=== PATIENT | female | born 1975 | race African-American/Black ===

== ENCOUNTER → 2016-10-02 | Outpatient (CLI) | payer MEDICAID ==
[~2016-10-02] MED LIST: ANUSOL SUPP1 SUPP PR; FIBERCON625 MG PO; KEFLEX500 MG PO; TYLENOL #3 PO; ZOLOFT PO; [UNRECOGNIZED DRUG - REMARK]
--- NOTE | ~2016-10-02 | MR97 ---
[facility] A Service of [facility] & [facility] RADIOLOGY TEXT RESULTS PATIENT: ANNETTE ADAMSON LOCATION: CIVR : 71 UNIT #: [id number] AGE: [address]: JUAN LUIS MIRELES MD SEX: F ORDER DR: [id number] [facility]. [place], [place] [address] [id number] O MR#: [id number] Acc #: [id number] NAME: ANNETTE ADAMSON : 1975 SEX: F STUDY DATE/TIME: 10/02/2016 15:03 UNIT: [facility] ROOM: STUDY DESCRIPTION: MR Knee Arthrogram Lt Attending Physician: Juan Luis Mireles M.D. Referring Physician: Juan Luis Mireles M.D. Ordering Physician: Juan Luis Mireles M.D. Primary Care Physician: Juan Luis Mireles M.D. MRI CENTER REPORT This report is preliminary unless electronic signature is present. EXAM MR arthrogram left knee HISTORY 40-year-old female chronic knee pain since 2004. History of arthroscopic surgery age 13. Complains of pain anterolateral aspect knee. TECHNIQUE Routine MR arthrogram is performed of the left knee following the intraarticular ejection of dilute gadolinium. FINDINGS Examination demonstrates early degenerative changes of the knee. There are areas of moderate to high-grade chondromalacia medial compartment predominately involving the weightbearing aspect of the medial femoral condyle with suspected full-thickness cartilage loss central weightbearing aspect of the medial femoral condyle measuring up to 2.3 cm. 8 mm focus of moderate-grade chondromalacia noted within the lateral femoral trochlea. Moderate to high-grade chondromalacia noted along the medial patellar facet. Areas of deep fissuring noted along the lateral patellar facet. Lateral meniscus appears intact. There is a sizable defect in the posterior horn of the medial meniscus near the root attachment compatible with a large radial tear measuring about 8 mm in width and representing a full-thickness or near full-thickness tear. There is a small horizontal cleavage tear involving more medial aspect of the posterior horn of the meniscus. Mild medial extrusion of the meniscus. Anterior and posterior cruciate ligaments appear intact. The collateral ligaments and extensor mechanism unremarkable. IMPRESSION ST[facility]. [facility] A Service of [facility] & [facility] RADIOLOGY TEXT RESULTS PATIENT: ANNETTE ADAMSON LOCATION: [facility] : 71 UNIT #: [id number] AGE: [address]: JUAN LUIS MIRELES MD SEX: F ORDER DR: 1. Multifocal chondromalacia with high-grade chondromalacia along the weightbearing aspect of the medial femoral condyle as well as high-grade chondromalacia medial patellar facet. 2. Large radial tear near the root attachment posterior horn of the medial meniscus as detailed above. An additional smaller complex tear is also noted in the more medial portion of the posterior horn and medial meniscus which has components of both vertical and horizontal cleavage type tear. No displaced meniscal fragment. Dictated by... Stella Luis M.D. THIS IS AN ELECTRONICALLY VERIFIED REPORT Stella Luis M.D. at 10/05/2016 3:55 PM MARCELINO/hermelindo TD: 10/05/2016 12:38 JOB #: [id number] MRI CENTER REPORT Page 1 of 1 COPY
--- NOTE | ~2016-10-02 | XA42 ---
[facility] A Service [facility] RADIOLOGY TEXT RESULTS PATIENT: ANNETTE ADAMSON [facility] : [facility] UNIT #: [id number] AGE: [address]: JUAN LUIS MIRELES MD SEX: F ORDER DR: [id number] [facility]. [place], [place] [address] [id number] O MR#: [id number] Acc #: [id number] NAME: ANNETTE ADAMSON : 1975 SEX: F STUDY DATE/TIME: 10/02/2016 14:18 UNIT: [facility] ROOM: STUDY DESCRIPTION: XA Arthrogram Knee Lt Attending Physician: Juan Luis Mireles M.D. Referring Physician: Juan Luis Mireles M.D. Ordering Physician: Juan Luis Mireles M.D. Primary Care Physician: Juan Luis Mireles M.D. MEDICAL IMAGING REPORT This report is preliminary unless electronic signature is present EXAM Left knee arthrogram. HISTORY SUPPLIED Chronic left knee pain. History of previous surgery. FINDINGS This examination was performed in conjunction with an MR study. Patient was placed in the supine position. Skin was prepped with chlorhexidine and draped. Local anesthesia was infiltrated laterally and a 25-gauge needle inserted into the joint. Approximately 15 mL of IV contrast media was injected with 0.1 mL of gadolinium. A single spot radiograph was obtained documenting intraarticular injection. Patient was then taken to the MR suite for MR arthrography. Total fluoroscopy time was 0.9 minutes. Total exposure 7 mGy air kerma. A single spot radiograph was submitted. CONCLUSION Successful injection of the left knee with contrast media as described above. Dictated by... Eric Patel M.D. THIS IS AN ELECTRONICALLY VERIFIED REPORT Eric Patel M.D. at 10/04/2016 9:17 AM SANDY/jason TD: 10/03/2016 15:16 JOB #: [id number] [facility] A Service [facility] RADIOLOGY TEXT RESULTS PATIENT: ANNETTE ADAMSON LOCATION: [facility] #: [id number] : 71 UNIT #: [id number] AGE: [address]: JUAN LUIS MIRELES MD SEX: F ORDER DR: MEDICAL IMAGING REPORT Page 1 of 1 COPY
== END | disposition home or self-care (01) ==
LOC: CIVR 13:00
DX: M22.42 Chondromalacia patellae, left knee (principal); S83.242A Other tear of medial meniscus, current injury, left knee, initial encounter; S83.232A Complex tear of medial meniscus, current injury, left knee, initial encounter
CPT/HCPCS: 73580; 73722; 77002; Q9967